=== PATIENT | female | born 1930 | race Caucasian/White ===

== ENCOUNTER → 2016-08-11 | Outpatient (CLI) | payer MEDICARE, OTHER ==
[~2016-08-11] MED LIST: ALTOPREV20 MG PO; ASPIRIN E.C. 8181 MG PO; CALCIUM + D 6001 TAB PO; CELEXA 20MG20 MG/TAB PO; GLUCOSAMINE & C1 CA1 PO; HCTZ 25MG TAB25 MG PO; K-DUR 2020 MEQ; KLOR-CON M2020 MEQ; KLOR-CON M2020 MEQ PO; LASIX 20MG TABL20 MG; NORVASC 5MG5 MG/TAB; OMEGA 31000 MG PO; SYNTHROID0.112 MG/T PO; THERAGRAN1 TA1 PO; TOPROL XL 50MG50 MG PO; VITAMIN D3400 IU PO; ZITHROMAX 250M250 MG PO
== END ==
LOC: MC.RAD 09:40
DX: Z12.31 Encounter for screening mammogram for malignant neoplasm of breast (principal); D24.2 Benign neoplasm of left breast; D24.1 Benign neoplasm of right breast